=== PATIENT | male | born 1975 | race Caucasian/White ===

== ENCOUNTER 2024-06-18 08:59 | Outpatient (OUT) | payer OTHER, SELFPAY | END 2024-06-18 09:00 | disposition home or self-care (01) | LOC: PST 08:59 | PROVIDERS: Visit Provider Surgery | DX: Z01.818 Encounter for other preprocedural examination (principal); Z12.11 Encounter for screening for malignant neoplasm of colon ==

== ENCOUNTER 2024-06-23 07:41 | Day surgery (SDC) | payer OTHER, SELFPAY ==
--- OUTSIDE RECORDS SUMMARY | 2024-06-23 07:44 | XMS_ITS | CCD ---
Author Organization [facility] Care Team Providers Care Rock Worker Name Role Phone Kaden Duarte DO Primary Care Provider KADEN DUARTE Referring Unavailable FELICIA, KADEN Miller Primary Care Unavailable FELICIA, KADEN Miller Referring Unavailable FELICIA, KADEN Miller Primary Care Unavailable FELICIA, KADEN Miller Referring Unavailable FELICIA, KADEN Miller Primary Care Unavailable FELICIA, KADEN Miller Referring Unavailable FELICIA, KADEN Miller Primary Care Unavailable FELICIAKADEN Referring Unavailable FELICIA, KADEN Miller Primary Care Unavailable FELICIA, KADEN Miller Referring Unavailable FELICIA, KADEN Miller Primary Care Unavailable [facility] Unava ilable Kate ASCENCIO, Garrett Manning Attending Unavailable Tico Ferreira Attending Unavailable Felicia DO, [facility] Unava ilable Felicia DO, [facility] Primary Care Unava ilable Kate ASCENCIO, Garrett Manning Attending Unavailable Felicia DO, [facility] Primary Care Unava ilable Kate ASCENCIO, Garrett Manning Attending Unavailable Felicia DO, [facility] Primary Care Unava ilable Kate ASCENCIO, Garrett Manning Attending Unavailable Felicia DO, [facility] Primary Care Unava ilable Kate ASCENCIO, Garrett Manning Attending Unavailable Felicia DO, [facility] Primary Care Unava ilable Kate ASCENCIO, Garrett Manning Attending Unavailable Kate ASCENCIO, Garrett Manning Attending Unavailable Felicia , [facility] Primary Care Unava ilable Felicia DO, Kaden Miller Primary Care Provider Danielle Cardoza NP Unavailable DANIELLE CARDOZA Attending Unavailable DANIELLE CARDOZA Attending Unavailable DANIELLE CARDOZA Attending Unavailable CURTIS LI Attending Unavailable Medications Current Medications Medication Drug Class(es) Dates Sig (Normalized) Sig (Original) ALPRAZolam 1 mg oral tablet (3 sources) Benzodiazepine take 1 tablet by mouth three times daily ALPRAZolam (XANAX) 1 MG tablet Take 1 mg by mouth three times daily 0 Active 24 hr amphetamine aspartate 5 mg / amphetamine sulfate 5 mg / dextroamphetamine saccharate 5 mg / dextroamphetamine sulfate 5 mg extended release oral capsule (9 sources) Central Nervous System Stimulant Start: 03-03-2024 take 1 capsule by mouth in the morning, then take 1 capsule by mouth every twenty-four hours at bedtime amphetamine-dex troamphetamine XR (Adderall XR) 20 MG 24 hr capsule Take 20 mg by mouth in the morning and 20 mg before bedtime. 03/03/2024 Active aspirin 81 mg delayed release oral tablet (11 sources) Platelet Aggregation Inhibitor, Nonsteroidal Anti-inflammatory Drug aspirin 81 MG EC tablet 1 (one) time each day at the same time. Active baclofen 20 mg oral tablet (11 sources) gamma-Aminobutyric Acid-ergic Agonist Start: 04-17-2024 End: 04-17-2024 take 1 tablet by mouth in the morning baclofen (Lioresal) 20 MG tablet Indications: Myalgia Take 1 tablet (20 mg) by mouth in the morning and 1 tablet (20 mg) before bedtime. 180 tablet 1 04/17/2024 Active Start: 04-13-2024 End: 04-15-2024 Baclofen 15 MG tablet Indica tions: Myalgia Take 20 mg by mouth Daily as needed (pain) 30 tablet 04/13/2024 04/15/2024 Discontinued Start: 04-09-2024 End: 04-13-2024 take 1 tablet by mouth once daily as needed for muscle spasms baclofen 15 MG tablet Indications: Myalgia Take 15 mg by mouth Daily as needed for muscle spasms 30 tablet 04/09/2024 04/13/2024 Discontinued (Reorder) Start: 04-09-2024 End: 05-09-2024 take 1 tablet by mouth once daily as needed for muscle spasms baclofen 15 MG tablet Indications: Myalgia Take 15 mg by mouth Daily as needed for muscle spasms 30 tablet 04/09/2024 05/09/2024 Active bisacodyl 5 mg delayed release oral tablet (2 sources) Stimulant Laxative Start: 06-09-2024 End: 06-09-2024 take 1 tablet by mouth once bisacodyl (Dulcolax) 5 MG EC tablet Indications: Encounter for screening colonoscopy Take 1 tablet (5 mg) by mouth 1 time for 1 dose Do not crush, chew, or split. Take as detailed on clinic hand out for colonoscopy prep 4 tablet 06/09/2024 06/09/2024 Active 24 hr buPROPion hydrochloride 300 mg extended release oral tablet (14 sources) Aminoketone Start: 05-16-2022 take 1 tablet by mouth every twenty-four hours in the morning buPROPion XL (Wellbutrin XL) 300 MG 24 hr tablet Take 1 tablet by mouth in the morning. 05/16/2022 Active take 1 tablet by mouth twice tan ly buPROPion (WELLBUTRIN SR) 100 MG SR tablet Take 100 mg by mouth 2 times daily 0 Active busPIRone hydrochloride 5 mg oral tablet (4 sources) Start: 06-07-2022 End: 04-09-2024 busPIRone (Buspar) 5 MG tablet every 12 (twelve) hours. 06/07/2022 04/09/2024 Discontinued cloNIDine hydrochloride 0.1 mg oral tablet (4 sources) Central alpha-2 Adrenergic Agonist Start: 08-06-2023 End: 04-09-2024 take 1 tablet by mouth twice daily as needed cloNIDine (Catapres) 0.1 MG tablet Take 0.1 mg by mouth 2 (two) times a day as needed 08/06/2023 04/09/2024 Discontinued dapagliflozin 10 mg oral tablet (11 sources) Sodium-Glucose Cotransporter 2 Inhibitor Start: 12-30-2023 Farxiga 10 MG Indications: Type 2 diabetes mellitus with hyperglycemia, without long-term current use of insulin ([facility]) TAKE 1 TABLET DAILY 90 tablet 3 12/30/2023 Active doxycycline monohydrate 100 mg oral capsule (3 sources) Tetracycline-class Drug take 1 capsule by mouth twice daily doxycycline (MONODOX) 100 MG capsule Take 100 mg by mouth 2 times daily 0 Active guanFACINE 2 mg oral tablet (4 sources) Central alpha-2 Adrenergic Agonist Start: 07-12-2023 End: 11-07-2024 take 1 tablet by mouth at bedtime guanFACINE (Tenex) 2 MG tablet Take 2 mg by mouth at bedtime 07/12/2023 04/09/2024 Discontinued hydrOXYzine hydrochloride 50 mg oral tablet (4 sources) Antihistamine Start: 05-17-2023 End: 04-09-2024 take 1 tablet by mouth four times daily for anxiety hydrOXYzine HCl (Atarax) 50 MG tablet take 1 tablet by mouth four times a day if needed for anxiety 05/17/2023 04/09/2024 Discontinued lamoTRIgine 100 mg oral tablet (18 sources) Mood Stabilizer, Anti-epileptic Agent Start: 11-04-2023 take 1 tablet by mouth once daily lamoTRIgine (LaMICtal) 100 MG tablet Take 100 mg by mouth Daily 11/04/2023 Active Start: 11-04-2023 take 1 tablet by sami th once daily LaMICtal 25 MG tablet Take 25 mg by mouth Daily 11/04/2023 Active metFORMIN hydrochloride 1000 mg oral tablet (12 sources) Biguanide Start: 09-27-2023 End: 07-12-2024 take 1 tablet by mouth in the morning metFORMIN (Glucophage) 1000 MG tablet Indications: Type 2 diabetes mellitus with hyperglycemia, without long-term current use of insulin (CMS/HCC) Take 1 tablet (1,000 mg) by mouth in the morning and 1 tablet (1,000 mg) in the evening. Take with meals. 180 tablet 1 04/13/2024 07/12/2024 Active polyethylene glycol 3350 47164 mg powder for oral solution (2 sources) Osmotic Laxative Start: 06-09-2024 End: 06-09-2024 take 17 g by mouth once polyethylene glycol, PEG, 3350 (Glycolax) 17 GM/SCOOP powder Indications: Colonoscopy Take 238 g by mouth 1 (one) time for 1 dose Take as detailed from clinic hand out for colonoscopy prep 238 g 06/09/2024 06/09/2024 Active pravastatin sodium 40 mg oral tablet (16 sources) HMG-CoA Reductase Inhibitor Start: 09-27-2023 End: 06-04-2024 pravastatin (Pravachol) 40 MG tablet Indications: Mixed hyperlipidemia (CMS/HCC) TAKE 1 TABLET DAILY 90 tablet 06/04/2024 Active take 1 tablet by mouth once hector y pravastatin (PRAVACHOL) 40 MG tablet Take 40 mg by mouth daily 0 Active propranolol hydrochloride 10 mg oral tablet (9 sources) beta-Adrenergic Lacey Start: 02-01-2024 propranolol (Inderal) 10 MG tablet Daily as needed 02/01/2024 Active sildenafil 50 mg oral tablet (13 sources) Phosphodiesterase 5 Inhibitor Start: 04-09-2024 End: 05-09-2024 take 1 tablet by mouth once daily as needed sildenafil (Viagra) 50 MG tablet Indications: Vasculogenic erectile dysfunction, unspecified vasculogenic erectile dysfunction type Take 1 tablet (50 mg) by mouth Daily as needed for erectile dysfunction 30 tablet 04/09/2024 Active Start: 09-04-2023 End: 04-09-2024 take 1 tablet by mouth once daily as needed sildenafil (Viagra) 25 MG tablet Indications: Vasculogenic erectile dysfunction, unspecified vasculogenic erectile dysfunction type Take 1 tablet (25 mg) by mouth Daily as needed for erectile dysfunction 30 tablet 09/04/2023 04/09/2024 Discontinued (Reorder) Completed/Discontinued Medications Medication Drug Class(es) Dates Sig (Normalized) Sig (Original) omeprazole 20 mg delayed release oral capsule (10 sources) Proton Pump Inhibitor Start: 11-14-2023 End: 04-13-2024 take 1 capsule by mouth once daily omeprazole (PriLOSEC) [address] capsule Indications: Gastroesophageal reflux disease, unspecified whether esophagitis present Take 1 capsule (20 mg) by mouth Daily Do not crush or chew. 90 capsule 1 11/14/2023 04/13/2024 Discontinued take 1 capsule by mouth once tan ly omeprazole (PRILOSEC) 20 MG capsule Take 20 mg by mouth Daily 0 Active technetium sestamibi (CARDIOLITE) injection 30 millicurie (2 sources) Start: 01-26-2021 End: 01-26-2021 technetium sestamibi (CARDIOLITE) injection 30 millicurie Start: 01-25-2021 End: 01-25-2021 technetium sestamibi (CARDIO LITE) injection 30 millicurie Problems Active Problems Problem Classification Problem Date Documented Date Episodic/Chronic Anxiety disorders (13 sources) Generalized anxiety disorder; Translations: [Generalized anxiety disorder] Onset: 08-06-2022 08-12-2023 Chronic Diabetes mellitus with complications (20 sources) Hyperglycemia due to type 2 diabetes mellitus; Translations: [Type 2 diabetes mellitus with hyperglycemia] Onset: 08-06-2022 Resolved: 09-12-2023 12-06-2022 Chronic Disorders of lipid metabolism (13 sources) Mixed hyperlipidemia; Translations: [Mixed hyperlipidemia] Onset: 12-06-2022 03-04-2024 Chronic Diverticulosis and diverticulitis (11 sources) Diverticulosis of colon; Translations: [Diverticulosis of large intestine without perforation or abscess without bleeding] Onset: 12-06-2022 12-06-2022 Chronic Esophageal disorders (11 sources) Gastroesophageal reflux disease; Translations: [Gastro-esophageal reflux disease without esophagitis] Onset: 12-06-2022 12-06-2022 Chronic Essential hypertension (15 sources) Essential hypertension; Translations: [Essential (primary) hypertension] Onset: 12-06-2022 Chronic Hypertension with complications and secondary hypertension (13 sources) Cardiomegaly - hypertensive; Translations: [Hypertensive heart disease without heart failure] Onset: 12-06-2022 Chronic Nonspecific chest pain (2 sources) Chest pain; Translations: [Chest pain, unspecified] Episodic Other connective tissue disease (4 sources) Muscle pain; Translations: [Myalgia, unspecified site] 04-09-2024 Episodic Other male genital disorders (2 sources) Vasculopathic erectile dysfunction; Translations: [Male erectile dysfunction, unspecified] 04-09-2024 Chronic Other nervous system disorders (11 sources) Chronic pain; Translations: [Other chronic pain] Onset: 12-06-2022 12-06-2022 Chronic Other screening for suspected conditions (not mental disorders or infectious disease) (6 sources) Patient encounter status; Translations: [Encounter for screening for cardiovascular disorders] 04-09-2024 Episodic Other upper respiratory disease (11 sources) Allergic disposition; Translations: [Other allergic rhinitis] Onset: 12-06-2022 12-06-2022 Chronic Unclassified (2 sources) Patient encounter status 04-09-2024 Past or Other Problems Problem Classification Problem Date Documented Date Episodic/Chronic Abdominal pain (14 sources) Indigestion; Translations: [Epigastric pain] Onset: 04-06-2015 Resolved: 09-12-2023 04-06-2015 Episodic Mood disorders (11 sources) Mood disorders Onset: 08-12-2023 Resolved: 04-09-2024 08-12-2023 Nutritional deficiencies (11 sources) Vitamin D deficiency; Translations: [Vitamin D deficiency, unspecified] Onset: 12-06-2022 Resolved: 09-12-2023 09-12-2023 Chronic Osteoarthritis (11 sources) Osteoarthritis of joint of right shoulder region; Translations: [Primary osteoarthritis, right shoulder] Onset: 12-06-2022 Resolved: 09-12-2023 09-12-2023 Chronic Other and unspecified benign neoplasm (14 sources) History of polyp of colon; Translations: [Personal history of colonic polyps] Onset: 04-06-2015 04-06-2015 Episodic Other connective tissue disease (11 sources) Tear of right rotator cuff; Translations: [Unspecified rotator cuff tear or rupture of right shoulder, not specified as traumatic] Onset: 12-06-2022 Resolved: 09-12-2023 09-12-2023 Episodic Screening and history of mental health and substance abuse codes (11 sources) Ex-smoker; Translations: [Personal history of nicotine dependence] Onset: 12-06-2022 Resolved: 04-09-2024 09-12-2023 Episodic Results Test Name Value Interpretation Reference Range Facility [facility] Post Vasectomyon 04-23 PV Result Normal [facility] Comment on above: Result Comment: No s perm cells seen in un-concentrated specimen. White Bloods Cells present Bacteria present. Performed By: #### S EMPV #### [address] [address] CARDIAC STRESS TESTon 2020 CARDIAC STRESS TEST [address] [id number] CARDIAC STRESS TEST PATIENT NAME: JOLLY BUCKLEY : 1975 MED REC NO: [id number] ROOM: ACCOUNT NO: [id number] ADMIT DATE: 01/25/2021 PROVIDER: Rishabh Miller CARDIOVASCULAR DIAGNOSTIC DEPARTMENT DATE OF STUDY: 01/25/2021 ORDERING PROVIDER: Kaden Duarte DO PRIMARY CARE PROVIDER: Kaden Duarte DO INTERPRETING PHYSICIAN: Rishabh Miller MD EXERCISE MYOCARDIAL PERFUSION STRESS TEST REPORT Stress/Rest single-isotope SPECT imaging with exercise stress and gated SPECT imaging INDICATION: Assessment of recent chest pain and/or discomfort. CLINICAL HISTORY: The patient is a 45-year-old man with no known coronary artery disease. Previous cardiac history includes: None. Other previous history includes: Chest pain, fatigue, dyspnea, diabetes mellitus, indigestion, heartburn, hypertension, smoker. Symptoms just prior to testing included: None. Relevant medications: None. PROCEDURE: The patient performed treadmill exercise using a Erlin protocol, completing 10:04 minutes and completing an estimated workload of 11.80 metabolic equivalents (METS). The test was terminated due to fatigue and shortness of breath. The heart rate was 93 beats per minute at baseline and increased to 164 beats per minute at peak exercise, which was 94% of the maximum predicted heart rate. The rest blood pressure was 120/70 mmHg and increased to 186/60 mmHg, which is a normal response. During the procedure, the patient developed fatigue, shortness of breath and leg fatigue, but denied any chest discomfort. Myocardial perfusion imaging: Imaging was performed at rest 30-45 minutes following the injection of 30 mCi of sestamibi. At peak exercise, the patient was injected with 30 mCi of sestamibi and exercise was continued for 1 minute. Gating post-stress tomographic imaging was performed 30-45 minutes after stress. STRESS ECG RESULTS: The resting electrocardiogram demonstrated normal sinus rhythm without definitive ST-segment abnormalities suggestive of myocardial ischemia. At peak exercise and during recovery, the patient developed: No significant ST segment changes suggestive of myocardial ischemia with no premature atrial contractions (PACs) and no premature ventricular contractions (PVCs). NUCLEAR IMAGING RESULTS: The overall quality of the study is fair. No significant attenuation artifact was seen. There is no evidence of abnormal lung uptake. Additionally, the right ventricle appears normal. The left ventricular cavity is noted to be normal in size on the stress images. There is no evidence of transient ischemic dilatation (TID) of the left ventricle. Gated SPECT imaging reveals normal myocardial thickening and wall motion with a calculated left ventricular ejection fraction of 60%. The rest images demonstrate homogeneous tracer distribution throughout the myocardium. SPECT images demonstrate homogeneous tracer distribution throughout the myocardium. IMPRESSION: 1. Normal myocardial perfusion imaging without significant evidence of myocardial ischemia or infarction. 2. Global left ventricular systolic function was normal with an ejection fraction of 60%, without regional wall motion abnormalities. 3. No significant electrocardiographic evidence of myocardial ischemia during EKG monitoring without significant associated arrhythmias. The patient's Jorge Treadmill score is 10, which correlates with a low risk for significant coronary artery disease. Overall, these results are most consistent with a low risk scan. RISHABH MILLER CANDACE Doc#: Unknown CC: Kaden Duarte Normal [facility] ECHO Complete 2D W Doppler W ColorOrdered By: Kaden Duarte on 01-25-2021 [facility] Transthoracic Echocardiography Report (TTE) Patient Name ALEIDA Date of Study 01/25/2021 JOLLY Springer Date of 1975 Gender Male Age 45 year(s) Race Room Number Height: 67 inch, 170.18 cm Corporate ID [id number] Weight: 212 pounds, 96.2 kg # Patient Acct [id number] BSA: 2.07 m^2 BMI: 33.2 kg/m^2 # MR # [id number] Repair Tech Sherry Busby Interpreting Physician Flash Cruz Fellow Referring Nurse Practitioner Interpreting Referring Physician MIREYA ELLISON Fellow * Type of Study TTE procedure:2D Echocardiogram, M-Mode, Doppler, Color Doppler. Procedure Date Date: 01/25/2021 Start: 09:50 AM Study Location: [facility] Indications:Chest pain and Hypertension. History / Tech. Comments: Dx: chest pain, HTN, hypertensive cardiomegally Patient Status: Outpatient Height: 67 inches Weight: 212 pounds BSA: 2.07 m^2 BMI: 33.2 kg/m^2 CONCLUSIONS Summary Global left ventricular systolic function appears preserved with an estimated ejection fraction of 60%. Mildly increased left ventricular wall thickness with a normal left ventricular cavity size. No significant valvular disease was seen. Evidence of mild diastolic dysfunction is seen. No significant cardiac cause of chest pain was identified from this study. Signature - - - - FINDINGS Left Atrium Left atrium is normal in size. Left Ventricle Global left ventricular systolic function appears preserved with an estimated ejection fraction of 60%. Mildly increased left ventricular wall thickness with a normal left ventricular cavity size. Right Atrium Right atrium is normal in size. Right Ventricle Normal right ventricular size and function. Mitral Valve Normal mitral valve structure and function. Aortic Valve Normal aortic valve structure and function without stenosis or regurgitation. Tricuspid Valve Normal tricuspid valve structure and function. Pulmonic Valve The pulmonic valve is normal in structure. Pericardial Effusion No significant pericardial effusion is seen. Miscellaneous Evidence of mild diastolic dysfunction is seen. Normal aortic root dimension. M-mode / 2D Measurements & Calculations: LVIDd:4.47 cm(3.7 - 5.6 cm) Diastolic Volume:89.09 ml LVIDs:3.22 cm(2.2 - 4.0 cm) Systolic Volume:33.28 ml IVSd:1.16 cm(0.6 - 1.1 cm) Aortic Root:3.7 cm(2.0 - 3.7 cm) LVPWd:1.1 cm(0.6 - 1.1 cm) LA Dimension: 3.63 cm(1.9 - 4.0 cm) Fractional Shortenin.96 % LA volume/Index: 39 ml /19m^2 Calculated LVEF (%): 62.64 % AV Cusp Separation: 2.56 cm Mitral: Aortic Valve Area (P1/2-Time): 2.56 cm^2 Peak Velocity: 0.93 m/s Peak E-Wave: 0.49 m/s Mean Velocity: 0.70 m/s Peak A-Wave: 0.54 m/s Peak Gradient: 3.45 mmHg E/A Ratio: 0.9 Mean Gradient: 2.13 mmHg Peak Gradient: 0.96 mmHg Acceleration Time: 38.68 msec P1/2t: 85.99 msec AV VTI: 12.83 cm Diastology / Tissue Doppler Lateral Wall E' velocity:0.09 m/s Lateral Wall E/E':5.49 [employer] Phone: Marco, Mhpn Incoming C ardio Results From Cpacs/Ge - 01/25/2021 5:57 PM EDT [facility] Transthoracic Echocardiography Report (TTE) Patient Name ALEIDA Date of Study 01/25/2021 JOLLY Springer Date of 1975 Gender Male Age 45 year(s) Race Room Number Height: 67 inch, 170.18 cm Corporate ID [id number] Weight: 212 pounds, 96.2 kg # Patient Acct [id number] BSA: 2.07 m^2 BMI: 33.2 kg/m^2 # MR # [id number] Repair Tech Work,Sherry Interpreting Physician Flash Cruz Fellow Referring Nurse Practitioner Interpreting Referring Physician MIREYA ELLISON Fellow * Type of Study TTE procedure:2D Echocardiogram, M-Mode, Doppler, Color Doppler. Procedure Date Date: 01/25/2021 Start: 09:50 AM Study Location: [facility] Indications:Chest pain and Hypertension. History / Tech. Comments: Dx: chest pain, HTN, hypertensive cardiomegally Patient Status: Outpatient Height: 67 inches Weight: 212 pounds BSA: 2.07 m^2 BMI: 33.2 kg/m^2 CONCLUSIONS Summary Global left ventricular systolic function appears preserved with an estimated ejection fraction of 60%. Mildly increased left ventricular wall thickness with a normal left ventricular cavity size. No significant valvular disease was seen. Evidence of mild diastolic dysfunction is seen. No significant cardiac cause of chest pain was identified from this study. Signature - - - - FINDINGS Left Atrium Left atrium is normal in size. Left Ventricle Global left ventricular systolic function appears preserved with an estimated ejection fraction of 60%. Mildly increased left ventricular wall thickness with a normal left ventricular cavity size. Right Atrium Right atrium is normal in size. Right Ventricle Normal right ventricular size and function. Mitral Valve Normal mitral valve structure and function. Aortic Valve Normal aortic valve structure and function without stenosis or regurgitation. Tricuspid Valve Normal tricuspid valve structure and function. Pulmonic Valve The pulmonic valve is normal in structure. Pericardial Effusion No significant pericardial effusion is seen. Miscellaneous Evidence of mild diastolic dysfunction is seen. Normal aortic root dimension. M-mode / 2D Measurements & Calculations: LVIDd:4.47 cm(3.7 - 5.6 cm) Diastolic Volume:89.09 ml LVIDs:3.22 cm(2.2 - 4.0 cm) Systolic Volume:33.28 ml IVSd:1.16 cm(0.6 - 1.1 cm) Aortic Root:3.7 cm(2.0 - 3.7 cm) LVPWd:1.1 cm(0.6 - 1.1 cm) LA Dimension: 3.63 cm(1.9 - 4.0 cm) Fractional Shortenin.96 % LA volume/Index: 39 ml /19m^2 Calculated LVEF (%): 62.64 % AV Cusp Separation: 2.56 cm Mitral: Aortic Valve Area (P1/2-Time): 2.56 cm^2 Peak Velocity: 0.93 m/s Peak E-Wave: 0.49 m/s Mean Velocity: 0.70 m/s Peak A-Wave: 0.54 m/s Peak Gradient: 3.45 mmHg E/A Ratio: 0.9 Mean Gradient: 2.13 mmHg Peak Gradient: 0.96 mmHg Acceleration Time: 38.68 msec P1/2t: 85.99 msec AV VTI: 12.83 cm Diastology / Tissue Doppler Lateral Wall E' velocity:0.09 m/s Lateral Wall E/E':5.49 [employer] Phone: [employer] Phone: XR CHEST (2 VW)on 01-25-2021 XR CHEST (2 VW) EXAMINATION: TWO XRAY VIEWS OF THE CHEST 01/25/2021 11:27 am COMPARISON: None. HISTORY: ORDERING SYSTEM PROVIDED HISTORY: Chest pain, unspecified type FINDINGS: Considering mild hypoinflation, the heart is normal in size. No evidence of pneumothorax, pleural effusion, infiltrate, or abnormal lung mass. Osseous structures are grossly unremarkable in appearance. IMPRESSION: Unremarkable PA and lateral chest. No evidence of acute cardiopulmonary process. Interpreted by: Izzy Garduno MD Signed by: Izzy Garduno MD 01/25/[address] [facility] Vital Signs Date Time Vital Sign Value Performing Clinician Chandra rudd 04-09-2024 07:02-0500 Body height 170.2 cm Danielle Cardoza [employer]PERVIS[employer] Work Phone: [facility] 04-09-2024 07:02-0500 Body mass index (BMI) [Ratio] 31.32 kg/m2 Danielle Cardoza [employer] Work Phone: [facility] 04-09-2024 07:02-0500 Body weight 90.72 kg Danielle Cardoza [employer] Work Phone: [facility] 04-09-2024 07:02-0500 Diastolic blood pressure 94 mm[Hg] Danielle Cardoza [employer] Work Phone: [facility] 04-09-2024 07:02-0500 Heart rate 86 /min Danielle Cardoza [employer] Work Phone: [facility] 04-09-2024 07:02-0500 SaO2% (BldA) [Mass fraction] 97 % Danielle Cardoza [employer] Work Phone: [facility] 04-09-2024 07:02-0500 Systolic blood pressure 136 mm[Hg] Danielle Cardoza [employer] Work Phone: [facility] Encounters Encounter Date Encounter Type Care Provider Facility Start: 06-09-2024 End: 06-09-2024 ambulatory CURTIS LI Not Available Start: 06-09-2024 End: 06-09-2024 Patient encounter procedure Curtis Li DO Work Phone: [facility] Comment on above: Encounter for screen ing colonoscopy (Primary Dx) Start: 06-02-2024 End: 06-04-2024 Refill Danielle Cardoza [employer] Work Phone: [facility] Comment on above: Mixed hyperlipidemia (CMS/HCC) Start: 04-17-2024 End: 04-17-2024 Refill Aretha Saab [employer] Work Phone: [facility] Comment on above: Myalgia Start: 04-13-2024 End: 04-13-2024 Refill Danielle Cardoza [employer] Work Phone: [facility] Comment on above: Type 2 diabetes jennifer itus with hyperglycemia, without long-term current use of insulin ([facility]) Med Refill Start: 04-10-2024 End: 04-10-2024 Telephone encounter Danielle Cardoza [employer] Work Phone: [facility] Comment on above: Med Refill Start: 04-09-2024 End: 04-09-2024 Bamboo flowsheet Danielle Cardoza [employer] Work Phone: [facility] Start: 04-09-2024 End: 04-09-2024 Bamboo flowsheet Danielle Cardoza [employer] Work Phone: [facility] Start: 04-09-2024 End: 04-09-2024 ambulatory DANIELLE CARDOZA Not Available Start: 04-09-2024 End: 04-09-2024 Office outpatient visit 25 minutes Danielle Cardoza [employer] Work Phone: [facility] Comment on above: Myalgia (Primary Dx) ; Screening for cardiovascular condition; Vasculogenic erectile dysfunction, unspecified vasculogenic erectile dysfunction type; Colon cancer screening; Essential hypertension (CMS/HCC); PRIYA (generalized anxiety disorder) ([facility]) Start: 03-04-2024 End: 03-04-2024 Refill Danielle Cardoza [employer] Work Phone: [facility] Comment on above: Mixed hyperlipidemia ([facility]) Start: 09-26-2023 ambulatory Kaden Duarte DO Facility:[facility] Start: 08-23-2023 End: 08-23-2023 ambulatory DANIELLE CARDOZA Not Available Start: 08-12-2023 End: 08-12-2023 ambulatory DANIELLE CARDZOA Not Available Start: 08-06-2023 End: 08-07-2023 ambulatory Kaden Duarte DO Facility:[facility] Start: 06-25-2023 End: 06-26-2023 ambulatory Kaden Duarte DO Facility:[facility] Start: 05-17-2023 End: 05-18-2023 ambulatory Kaden Goran Duarte DO Facility:[facility] Start: 04-23-2023 End: 04-24-2023 ambulatory 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 Facility:[facility] Start: 01-07-2023 End: 01-08-2023 ambulatory Kaden Duarte DO Facility:[facility] Start: 12-06-2022 End: 12-07-2022 ambulatory Kaden Goranpeace Duarte DO Facility:[facility] Start: 11-01-2022 End: 11-02-2022 ambulatory Garrett Love MD Facility:[facility] Start: 01-26-2021 End: 01-27-2021 ambulatory [facility] Start: 01-26-2021 End: 01-26-2021 Subsequent hospital visit by physician [facility] Cardiology Stress Room [facility] Stress Lab Comment on above: Arrived Start: 01-25-2021 End: 01-28-2021 ambulatory [facility] Start: 01-25-2021 End: 01-28-2021 ambulatory [facility]ADEN [facility] Start: 01-25-2021 End: 01-25-2021 Subsequent hospital visit by physician [facility] Echo Room [facility] Echocardiography Comment on above: Essential hypertensi on; Chest pain, unspecified type; Hypertensive cardiomegaly Procedures Date Procedure Procedure Detail Performing Clinician Start: 01-25-2021 Echo tthrc r-t 2d w/wom-mode compl spec&colr d Kaden Angela Felicia DO Work Phone: Start: 09-17-2017 Colonoscopy Danielle garcia NP Work Phone: Plan of Treatment Date Care Activity Detail Author Start: 09-18-2027 Screening for malign ant neoplasm of colon [facility] Start: 12-24-2025 Glaucoma screening Diabetes: R etinopathy Screening [facility] Start: 08-11-2024 Urine screening for protein Diabetes: Urine Protein Screening [facility] Start: 06-10-2024 End: 06-10-2024 Patient encounter procedure 06/10/2024 8:00 AM EST Office Visit [facility] [address] [place] [address] Curtis Li, [address] [place] [id number] [facility] Start: 06-08-2024 End: 06-08-2024 Patient encounter procedure 06/08/2024 12:15 PM EST Office Visit [facility] [address] [place] [address] Guillermo Curtis, [address] [place] [id number] [facility] Start: 06-04-2024 Influenza vaccination Influenza Vacc ine (#1) [facility] Comment on above: Postponed from 02/01 (Patient Refused) Start: 02-02-2024 Influenza vaccination Influenza Vacc ine (#1) [facility] Start: 11-12-2023 Hemoglobin A1c measurement Diabetes: Hemoglobin A1C [facility] Start: 02-01-2021 Influenza vaccination Flu vaccine (# 1) [employer] Phone: Start: 01-26-2021 End: 01-26-2021 Patient encounter procedure 01/26/2021 Appointment Stress Lab [facility] Stress Lab Start: 2018 Screening for malign ant neoplasm of colon Colon cancer screen colonoscopy [facility] [employer] Phone: Start: 1992 DTaP/Tdap/Td vaccine (1 - Tdap) DTaP/Tdap/Td vaccine (1 - Tdap) [facility] [employer] Phone: Start: 1988 HIV screening HIV screen [facility] Work Phone: Start: 1983 Lipid panel Lipid screen [facility] Work Phone: Start: 1973 Hepatitis C screening Hepatitis C sc reedre [facility] [employer] Work Phone: Start: 1973 Screening for malign ant neoplasm of colon [facility] End: 01-25-2021 NM MYOCARDIAL SPECT REST EXERCISE OR RX NM MYOCARDIAL SPECT REST EXERCISE OR RX Imaging Routine Essential hypertension Chest pain, unspecified type Hypertensive cardiomegaly 1 Occurrences starting 01/25/2021 until 01/25/2021 [facility] [employer] Work Phone: Comment on above: 1 Occurrences starti ng 01/25/2021 until 01/25/2021 Immunizations Immunization Date Immunization Notes Care Provider Fa cility 10-04-2022 tetanus toxoid, redu horacio diphtheria toxoid, and acellular pertussis vaccine, adsorbed Danielle Cardoza [employer] Work Phone: [facility] 04-04-2021 influenza, injectabl e, quadrivalent, preservative free Danielle Cardoza [employer] Work Phone: [facility] 04-04-2021 influenza virus vacc ine, unspecified formulation Danielle Cardoza [employer] Work Phone: [facility] 04-11-2020 Seasonal, quadrivale nt, recombinant, injectable influenza vaccine, preservative free Danielle Cardoza [employer] Work Phone: [facility] 10-17-1999 tetanus and diphther ia toxoids, adsorbed, preservative free, for adult use (5 Lf of tetanus toxoid and 2 Lf of diphtheria toxoid) Danielle Cardoza [employer] Work Phone: [facility] Payers Date Payer Category Payer Private Health Insurance [id number] 2022 Private Health Insurance 2014 Private Health Insurance [id number] 1973 Unknown [id number] 2.16.8 [id number] 1973 Unknown [id number] 2.16.8 [id number] 1973 Unknown [id number] 2.16.8 [id number] 1973 Unknown [id number] 2.16.8 [id number] 1973 Unknown [id number] 2.16.8 [id number] 1973 Unknown [id number] 2.16.8 [id number] 1973 Unknown [id number] 2.16. [id number] 1973 Unknown [id number] 2.16. [id number] 1973 Unknown [id number] 2.16. [id number] 1973 Unknown [id number] 2.16. [id number] 1973 Unknown [id number] 2.16. [id number] 1973 Unknown [id number] 2.16. [id number] 1973 Unknown [id number] 2.16. [id number] 1973 Unknown [id number] 2.16. [id number] 1973 Unknown [id number] 2.16.84 [id number] 1973 Unknown [id number] 2.16.84 [id number] 1973 Unknown [id number] 2.16.84 [id number] 1973 Unknown [id number] 2.16.84 [id number] Social History Date Type Detail Facility Tobacco smoking stat us NHIS Unknown if ever smoked [employer] Phone: Start: 1975 Sex Assigned At Not on file [employer] Phone: Start: 08-12-2023 End: 04-09-2024 Tobacco smoking status NHIS Ex-smoker [facility] History of tobacco use Current smoker [facility] History of tobacco use Cigarette Smoker [facility] Start: 08-12-2023 End: 04-07-2024 Cigarettes smoked current (pack per day) - Reported 1 [facility] Start: 08-12-2023 End: 04-09-2024 Tobacco use and exposure Smokeless tobacco non-user [facility] Start: 09-12-2023 End: 04-09-2024 Alcoholic beverage intake Current drinker of alcohol (finding) [facility] Start: 12-05-2022 End: 04-07-2024 Humiliation, Afraid, Rape, and Kick questionnaire [HARK] [facility] Within the last year , have you been afraid of your partner or ex-partner? No [facility] Are you now , , , , never or living with a partner? [facility] How often to you hav e a drink containing alcohol? 2-3 time sa week [facility] How many standard dr inks containing alcohol do you have on a typical day? 1 or 2 [facility] How often do you hav e 6 or more drinks on 1 occasion? Less than monthly [facility] How hard is it for y ou to pay for the very basics like food, housing, medical care, and heating Not hard at all [facility] Do you feel stress - tense, restless, nervous, or anxious, or unable to sleep at night because your mind is troubled all the time - these days [OSQ] Very much [facility] (I/We) worried wheth er (my/our) food would run out before (I/we) got money to buy more. Never true [facility] Start: 12-05-2022 Alcohol Comment caffeine: yes, coffee/soda [facility] Start: 11-29-2022 Gender identity Identifies as male gender (finding) [facility] Start: 11-29-2022 Sexual orientation Heterosexual (finding) [facility] Do you feel stress - tense, restless, nervous, or anxious, or unable to sleep at night because your mind is troubled all the time - these days [OSQ] To some extent [facility] Clinical Notes 01-25-2021 to 06-09-2024 Curtis Li, - 06/09/2024 9:00 AM ESTTelephone Encounter - Aretha Tati Katiana, [employer] - 04/17/2024 12:14 PM ESTTelephone Encounter - Aretha Duffy Katiana, [employer] - 04/17/2024 12:14 PM EST Note Date & Type Note Facility 06-09-2024 History of Presen t illness Narrative General Surgery H&P Jolly Buckley 1975 Jolly Buckley is a 49 y.o. male presents for screening colonoscopy. He has a significant family Hx of colorectal cancer in his father and paternal grandfather and has c-scopes every 5 years. He has some issues with IBS and he said a possible diagnosis of ulcerative colitis but he hasn't ever been on medications for it. Denies abdominal pain. Denies melena or hematochezia. Denies changes in bowel habits. Denies changes in caliber of stools. Denies hx of unplanned weight loss. Denies fevers, chills, or sweats. Denies nausea or vomiting. Last colonoscopy was 2017. Takes 81mg ASA daily which he was told to hold 7 days before procedure. SUBJECTIVE: MEDICATIONS: ALLERGIES Current Outpatient Medications Medication Instructions amphetamine-dextroamphetamine XR (Adderall XR) 20 MG 24 hr capsule 20 mg, 2 times daily aspirin 81 MG EC tablet Every 24 hours baclofen (LIORESAL) 20 mg, Oral, 2 times daily buPROPion XL (Wellbutrin XL) 300 MG 24 hr tablet 1 tablet, Every morning Farxiga 10 mg, Oral, Daily LaMICtal 25 mg, Daily lamoTRIgine (LAMICTAL) 100 mg, Daily metFORMIN (GLUCOPHAGE) 1,000 mg, Oral, 2 times daily with meals pravastatin (PRAVACHOL) 40 mg, Oral, Daily propranolol (Inderal) 10 MG tablet Daily PRN sildenafil (VIAGRA) 50 mg, Oral, Daily PRN No Known Allergies PAST MEDICAL HISTORY: SOCIAL HISTORY SURGICAL HISTORY: Past Medical History: Diagnosis Date Acne ADHD (attention deficit hyperactivity disorder) ([facility]) 05/12/2023 Allergies Anxiety Depression ([facility]) Diabetes mellitus ([facility]) Dyspnea and respiratory abnormalities GERD (gastroesophageal reflux disease) Hx of colonic polyp IBS (irritable bowel syndrome) Obesity Ulcerative colitis ([facility]) Unspecified rotator cuff tear or rupture of right shoulder, not specified as traumatic 12/06/2022 Social History Tobacco Use Smoking status: Former Current packs/day: 1.00 Average packs/day: 1 pack/day for 5.0 years (5.0 ttl pk-yrs) Types: Cigarettes Smokeless tobacco: Never Vaping Use Vaping status: Every Day Substance Use Topics Alcohol use: Yes Alcohol/week: 10.0 standard drinks of alcohol Types: 10 Cans of beer per week Comment: caffeine: yes, coffee/soda Drug use: Not Currently Past Surgical History: Procedure Laterality Date COLONOSCOPY 2008 colitis- Dr. Bright COLONOSCOPY 09/2017 Dr. Duran COLONOSCOPY 2003 Dr. Butcher KNEE ARTHROPLASTY Right 05/2019 ROTATOR CUFF REPAIR Right 06/2022 Dr. Love VASECTOMY WISDOM TOOTH EXTRACTION Family History Problem Relation Name Age of Onset Colon cancer Father Socorro Buckley Cancer Father Socorro Buckley Lung cancer Maternal Grandfather Colon cancer Paternal Grandmother Colon cancer Paternal Grandfather No Known Allergies Past Surgical History: Procedure Laterality Date COLONOSCOPY 2008 colitis- Dr. Bright COLONOSCOPY 09/2017 Dr. Duran COLONOSCOPY 2004 Dr. Butcher KNEE ARTHROPLASTY Right 05/2019 ROTATOR CUFF REPAIR Right 06/2022 Dr. Love VASECTOMY WISDOM TOOTH EXTRACTION Tobacco Use: Medium Risk (04/09/2024) Patient History Smoking Tobacco Use: Former Smokeless Tobacco Use: Never Passive Exposure: Not on file Alcohol Use: Patient Declined (04/07/2024) AUDIT-C Frequency of Alcohol Consumption: Patient declined Average Number of Drinks: Patient declined Frequency of Binge Drinking: Patient declined Depression: Not at risk (04/09/2024) PHQ-2 PHQ-2 Score: 1 Physical Activity: Insufficiently Active (04/07/2024) Exercise Vital Sign Days of Exercise per Week: 1 day Minutes of Exercise per Session: 30 min REVIEW OF SYMPTOMS: Review of Systems All other systems reviewed and are negative. 10 systems were reviewed. Positives noted above. Remainder are negative per CMS guidelines. OBJECTIVE: Visit Vitals Smoking Status Former Phone visit ASSESSMENT AND PLAN: Assessment/Plan Diagnoses and all orders for this visit: Encounter for screening colonoscopy Plan: Patient is average risk for colon cancer. Colonoscopy can be scheduled electively. Patient informed of the risks of procedure which include but not limited to bleeding, perforation, and risks of anesthesia. Patient understood risks and signed informed consent for the procedure under monitored anesthesia care. Handout for bowel prep provided in clinic. Patient was informed of the need for a ride home from the hospital and the need for someone to be with them for the following 24 hrs post procedure. Thank you, Gian Li DO documented in this encounter [facility] 04-17-2024 Telephone encounter Note Resent at express rx request [facility] 04-17-2024 Miscellaneous Notes Resent at express rx request documented in this encounter [facility] 04-13-2024 Note Addended by: DANIELLE POLLARD on: 04/13/2024 02:41 PM Modules accepted: Orders [facility] 04-13-2024 Miscellaneous Notes Addended by: DANIELLE CARDOZA on: 04/13/2024 02:41 PM Modules accepted: Orders Baclofen 15mg is not covered by pts insurance. Express script called and states 20mg, 10mg, or 5mg are covered Can send new rx or call number below to phone it in Phone [phone] Ref [id number] documented in this encounter [facility] 04-13-2024 Telephone encounter Note Baclofen 15mg is not covered by pts insurance. Express script called and states 20mg, 10mg, or 5mg are covered Can send new rx or call number below to phone it in Phone [phone] Ref [id number] [facility] 04-10-2024 Telephone encounter Note Called express script- PA needed as med is not covered. PA completed per telephone. Informed in would take 24 hours for determination Update sent to pt via [employer] [facility] 04-10-2024 Miscellaneous Notes Called express script- PA needed as med is not covered. PA completed per telephone. Informed in would take 24 hours for determination Update sent to pt via [employer] Following message from pt Can you call express scripts and see what they need to get this sent? Thank you Danielle, I checked my express scripts for the baclofen script you sent in. It says Delayed, Information Needed. I am not sure if they will reach out to you but with my psychiatrist they don't. Just thought I would pass this along to keep things moving. Jolly Mitchell documented in this encounter [facility] 04-10-2024 Telephone encounter Note Following message from pt Can you call express scripts and see what they need to get this sent? Thank you Danielle I checked my express scripts for the baclofen script you sent in. It says Delayed, Information Needed. I am not sure if they will reach out to you but with my psychiatrist they don't. Just thought I would pass this along to keep things moving. Jolly Mitchell [facility] 04-09-2024 History of Presen t illness Narrative Jolly Buckley is a 49 y.o. male presents with chief complaint of No chief complaint on file. HPI: Has started new counselor and psychiatrist through [facility]-able to do virtual visits with one in person yearly Sees counselor every 2 weeks and psychiatrist every 3 months Many medication changes since last visit but feeling much improved, calmer, more focussed, less triggered Working on his alcohol dependence-feels his frequency is 50% decreased but is still working on quantity Does drink beer daily Continues massages-requesting muscle relaxer change since he is not seeing as much benefit with current tizanidine Labs due today but admits he has focussed on mental health since last OV that his weight and eating habits are not well managed DIABETES Farxiga 10mg every day, metformin 1000mg BID A1C- 08/12/2023- 6.2 MICROA- 08/12/2023 EYE EXAM- 12/20/2023 LABS- 08/2023 PSA- 08/12/2023- 0.72 HEP C SCREENING- 12/2022- NR COLON- 09/2017- tubular adenoma- repeat in 5 years; signed refusal 04/09/2024, but willing to complete in 2024 WELLNESS- 08/2023 VACCINES- tdap 10/2022 DENTIST- Ronit INTEGRITY ENGINEER- Dr Torres- aware to update yearly ORTHO- Dr Love/[facility] PSYCHIATRIST- Sheila Degroot/Jose SUBJECTIVE: MEDICATIONS: Current Outpatient Medications Medication Instructions amphetamine-dextroamphetamine XR (Adderall XR) 20 MG 24 hr capsule 20 mg, 2 times daily aspirin 81 MG EC tablet Every 24 hours Baclofen 15 mg, Oral, Daily PRN buPROPion XL (Wellbutrin XL) 300 MG 24 hr tablet 1 tablet, Every morning Farxiga 10 mg, Oral, Daily LaMICtal 25 mg, Daily lamoTRIgine (LAMICTAL) 100 mg, Daily metFORMIN (GLUCOPHAGE) 1,000 mg, Oral, 2 times daily with meals omeprazole (PRILOSEC) 20 mg, Oral, Daily, Do not crush or chew. pravastatin (PRAVACHOL) 40 mg, Oral, Daily propranolol (Inderal) 10 MG tablet Daily PRN sildenafil (VIAGRA) 50 mg, Oral, Daily PRN ALLERGIES: No Known Allergies SURGICAL HISTORY: Past Surgical History: Procedure Laterality Date COLONOSCOPY 2009 colitis- Dr. Bright COLONOSCOPY 09/2017 Dr. Duran COLONOSCOPY 2004 Dr. Butcher KNEE ARTHROPLASTY Right 05/2019 ROTATOR CUFF REPAIR Right 06/2022 Dr. Love VASECTOMY WISDOM TOOTH EXTRACTION FAMILY HISTORY: Family History Problem Relation Name Age of Onset Colon cancer Father Socorro Buckley Cancer Father Socorro Buckley Lung cancer Maternal Grandfather Colon cancer Paternal Grandmother Colon cancer Paternal Grandfather SOCIAL HISTORY: Social History Tobacco Use Smoking status: Former Current packs/day: 1.00 Average packs/day: 1 pack/day for 5.0 years (5.0 ttl pk-yrs) Types: Cigarettes Smokeless tobacco: Never Vaping Use Vaping status: Every Day Substance Use Topics Alcohol use: Yes Alcohol/week: 10.0 standard drinks of alcohol Types: 10 Cans of beer per week Comment: caffeine: yes, coffee/soda Drug use: Not Currently Depression: Not at risk (04/09/2024) PHQ-2 PHQ-2 Score: 1 REVIEW OF SYMPTOMS: Review of Systems Constitutional: Negative for fatigue and fever. HENT: Negative for congestion, dental problem, hearing loss, sore throat, tinnitus, trouble swallowing and voice change. Eyes: Negative for visual disturbance. Respiratory: Negative for cough, chest tightness, shortness of breath and wheezing. Cardiovascular: Negative for chest pain, palpitations and leg swelling. Gastrointestinal: Negative for abdominal distention, abdominal pain, blood in stool, constipation, diarrhea, nausea, rectal pain and vomiting. Genitourinary: Negative for difficulty urinating, dysuria, frequency, hematuria and urgency. Musculoskeletal: Positive for myalgias. Negative for arthralgias, gait problem and joint swelling. Skin: Negative for pallor, rash and wound. Neurological: Negative for dizziness, tremors, seizures, syncope, weakness, light-headedness, numbness and headaches. Psychiatric/Behavioral: Positive for agitation, decreased concentration and dysphoric mood. Negative for behavioral problems, confusion, hallucinations, self-injury, sleep disturbance and suicidal ideas. The patient is nervous/anxious and is hyperactive. Hematological: Does not bruise/bleed easily. Endocrine: Negative for cold intolerance, heat intolerance, polydipsia, polyphagia and polyuria. Allergic/Immunologic: Negative for environmental allergies. OBJECTIVE: Visit Vitals BP (!) 136/94 Pulse 86 Ht 5' 7 Wt 200 lb SpO2 97% BMI 31.32 kg/m Smoking Status Former BSA 2.07 m Physical Exam Vitals and nursing note reviewed. Constitutional: Appearance: Normal appearance. He is normal weight. HENT: Head: Normocephalic and atraumatic. Right Ear: Tympanic membrane, ear canal and external ear normal. Left Ear: Tympanic membrane, ear canal and external ear normal. Nose: Nose normal. Mouth/Throat: Mouth: Mucous membranes are moist. Pharynx: Oropharynx is clear. No oropharyngeal exudate or posterior oropharyngeal erythema. Eyes: Extraocular Movements: Extraocular movements intact. Conjunctiva/sclera: Conjunctivae normal. Pupils: Pupils are equal, round, and reactive to light. Cardiovascular: Rate and Rhythm: Normal rate and regular rhythm. Pulses: Normal pulses. Heart sounds: Normal heart sounds. No murmur heard. No friction rub. No gallop. Pulmonary: Effort: Pulmonary effort is normal. No respiratory distress. Breath sounds: Normal breath sounds. No wheezing. Chest: Chest wall: No tenderness. Abdominal: General: Abdomen is flat. Bowel sounds are normal. There is no distension. Palpations: Abdomen is soft. Tenderness: There is no abdominal tenderness. There is no guarding. Musculoskeletal: General: No swelling, tenderness, deformity or signs of injury. Normal range of motion. Cervical back: Normal range of motion and neck supple. Right lower leg: No edema. Left lower leg: No edema. Lymphadenopathy: Cervical: No cervical adenopathy. Skin: General: Skin is warm and dry. Capillary Refill: Capillary refill takes less than 2 seconds. Coloration: Skin is not jaundiced. Findings: No bruising, erythema or rash. Neurological: General: No focal deficit present. Mental Status: He is alert and oriented to person, place, and time. Mental status is at baseline. Cranial Nerves: No cranial nerve deficit. Sensory: No sensory deficit. Motor: No weakness. Coordination: Coordination normal. Gait: Gait normal. Psychiatric: Mood and Affect: Mood normal. Behavior: Behavior normal. Thought Content: Thought content normal. Judgment: Judgment normal. ASSESSMENT AND PLAN: Assessment/Plan Diagnoses and all orders for this visit: Myalgia - baclofen 15 MG tablet; Take 15 mg by mouth Daily as needed for muscle spasms Vasculogenic erectile dysfunction, unspecified vasculogenic erectile dysfunction type - sildenafil (Viagra) 50 MG tablet; Take 1 tablet (50 mg) by mouth Daily as needed for erectile dysfunction Dose increased this date Colon cancer screening - Ambulatory referral to General Surgery; Future Essential hypertension ([facility]) Monitor bp at home and bring log to appts Vaping cessation education Alcohol cessation education Stress management Clean eating reinforced PRIYA (generalized anxiety disorder) ([facility]) F/up counselor and psychiatrist Follow up in about 6 months (around 10/07/2024) for wellness. documented in this encounter [facility] 01-25-2021 History of Presen t illness Narrative Explained policies and procedures of an echocardiogram/doppler study. documented in this encounter [facility] Phone: 01-25-2021 History of Presen t illness Narrative Instructed patient on the benefit and protocol of a Cardiolite/Lexiscan stress test. 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 documented in this encounter [facility] Phone: evaluation note* Diagnosis Mixed hyperlipidemia ([facility]) Mixed hyperlipidemia documented in this encounter [facility]* Diagnosis Myalgia- Primary Unspecified myalgia and myositis Screening for cardiovascular condition Screening for other and unspecified cardiovascular conditions Vasculogenic erectile dysfunction, unspecified vasculogenic erectile dysfunction type Colon cancer screening Special screening for malignant neoplasms, colon Essential hypertension ([facility]) Unspecified essential hypertension PRIYA (generalized anxiety disorder) ([facility]) Generalized anxiety disorder documented in [facility] encounter [facility]* Diagnosis Type 2 diabetes mellitus with hyperglycemia, without long-term current use of insulin ([facility]) [facility]* Diagnosis Myalgia Unspecified myalgia and myositis documented in [facility] encounter [facility]* Diagnosis Myalgia Unspecified myalgia and myositis documented [facility]* Diagnosis Mixed hyperlipidemia ([facility]) Mixed hyperlipidemia documented [facility]* Diagnosis Encounter for screening colonoscopy- Primary documented in this encounter [facility] Reason for Referral Status Reason Specialty Diagnoses / Procedures Referre d By Contact Referred To Contact Closed Cardiology Diagnoses Essential hypertension Chest pain, unspecified type Hypertensive cardiomegaly Procedures ECHO Complete 2D W Doppler W Color Kaden Duarte, DO [address] [place] [address] Status Reason Specialty Diagnoses / Procedures Re ferred By Contact Referred To Contact Authorized Radiology Diagnoses Essential hypertension Chest pain, unspecified type Hypertensive cardiomegaly Procedures NM MYOCARDIAL SPECT REST EXERCISE OR RX Kaden Duarte, DO [address] [place] [address] Advance Directives No Advanced Directives Records FoundDocuments on File 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 ACP-Advance Directive ACP-Power of Distribution Associate Summary Purpose Family History No Family History Records FoundNo Family History Records FoundNo Family History Records Found Additional Source Comments Reason for Visit (unrecogniz ed section and content) Status Reason Specialty Diagnoses / Procedures Referre d By Contact Referred To Contact Closed Cardiology Diagnoses Essential hypertension Chest pain, unspecified type Hypertensive cardiomegaly Procedures ECHO Complete 2D W Doppler W Color Kaden Duarte, DO [address] [place] [address] Status Reason Specialty Diagnoses / Procedures Re ferred By Contact Referred To Contact Authorized Radiology Diagnoses Essential hypertension Chest pain, unspecified type Hypertensive cardiomegaly Procedures NM MYOCARDIAL SPECT REST EXERCISE OR RX Kaden Duarte, DO [address] [place] [address] Status Reason Specialty Diagnoses / Procedures Referre d By Contact Referred To Contact Closed Radiology Diagnoses Essential hypertension Chest pain, unspecified type Hypertensive cardiomegaly Procedures NM MYOCARDIAL SPECT REST EXERCISE OR RX Kaden Duarte DO [address] [place] [address] Reason Comments Med Refill Reason Onset Date Comments Med Refill 04/10/2024 Reason Onset Date Comments Med Refill 04/13/2024 (unrecognized sect ion and content) No Status Records FoundNo Status Records FoundNo Status Records Found INFORMATION SOURCE (unrecogn ized section and content) DATE CREATED AUTHOR 01/29/2021 Mary Beth Tucker [facility] DATE CREATED AUTHOR AUTHOR'S ORGANIZ ATION 09/26/2023 [facility] DATE CREATED AUTHOR AUTHOR'S ORGANIZ ATION 06/15/2024 [facility] Care Teams (unrecognized sec tion and content) Rock Worker Relationship Specialty Start Date End Date Kaden Duarte DO [address] [place] [id number] PCP - General Family Medicine 11/30/22 Danielle Cardoza, [employer] [address] [place] [address] Nurse Practitioner Family Medicine 11/30/22 Rock Worker Relationship Specialty Start Date End Date Kaden Duarte DO [address] [place] [address] PCP - General Family Medicine 11/30/22 Danielle Cardoza, [employer] [address] [place] [address] Nurse Practitioner Family Medicine 11/30/22 Rock Worker Relationship Specialty Start Date End Date Kaden Duarte DO [address] [place] [address] PCP - General Family Medicine 11/30/22 Danielle Cardoza, [employer] [address] [place] [address] Nurse Practitioner Family Medicine 11/30/22 Rock Worker Relationship Specialty Start Date End Date Kaden Duarte DO [address] [place] [address] PCP - General Family Medicine 11/30/22 Danielle Cardoza, [employer] [address] [place] [address] Nurse Practitioner Family Medicine 11/30/22 Rock Worker Relationship Specialty Start Date End Date Kaden Duarte DO [address] [place] [address] PCP - General Family Medicine 11/30/22 Danielle Cardoza, [employer] [address] [place] [address] Nurse Practitioner Family Medicine 11/30/22 Rock Worker Relationship Specialty Start Date End Date Kaden Duarte DO [address] [place] [address] PCP - General Family Medicine 11/30/22 Danielle Cardoza, [employer] [address] [place] [address] Nurse Practitioner Family Medicine 11/30/22 Rock Worker Relationship Specialty Start Date End Date Kaden Duarte DO [address] [place] [address] PCP - General Family Medicine 11/30/22 Danielle Cardoza, CRUZITO [address] [place] [address] Nurse Practitioner Family Medicine 11/30/22 Rock Worker Relationship Specialty Start Date End Date Kaden Duarte DO [address] [place] [address] PCP - General Family Medicine 11/30/22 Danielle Cardoza, CRUZITO [address] [place] [address] Nurse Practitioner Family Medicine 11/30/22 FOR RECORDS PERTAINING TO PATIENTS WHO ARE OR HAVE BEEN ENROLLED IN A CHEMICAL DEPENDENCY/SUBSTANCEABUSE PROGRAM, SOME INFORMATION MAY BE OMITTED. This clinical summary was aggregated from multiple sources. Caution should be exercised in using it in the provision of clinical care. This summary normalizes information from multiple sources, and as a consequence, information in this document may materially change the coding, format and clinical context of patient data. In addition, data may be omitted in some cases. CLINICAL DECISIONS SHOULD BE BASED ON THE PRIMARY CLINICAL RECORDS. [facility]. provides no warranty or guarantee of the accuracy or completeness of information in this document.
[2024-06-23 07:50] VITALS: BP 132/78; PULSE 101; TEMP 36.1; O2SAT 96; BMI 30.7
[2024-06-23 08:07] LABS: Glucometer 161 mg/dL (74-106)
[2024-06-23] MEDS: 0.9 % SODIUM CHLORIDE 500 ML 50 ML IV (08:12)
--- NOTE | 2024-06-23 08:19 | W.PM.PROCNOT ---
Date of procedure: 06/23/24 Pre-op diagnosis: screening colonoscopy Post-op diagnosis: other (colonoscopy with polypectomy x2, 4mm polyps at 17cm rectosigmoid and 8 cm rectal region completely removed via cold snare) Procedure: Previous colonoscopy: 2018 procedure: colonoscopy with polypectomy x2, 4mm polyps at 17cm rectosigmoid and 8 cm rectal region completely removed via cold snare The patient was given IV conscious sedation.? The patient's SPO2 remained above 90% throughout the procedure. The colonoscope was inserted per rectum and advanced under direct vision to the cecum without difficulty.? The prep was good.? Findings: Terminal ileum os: normal Cecum/Ascending colon: normal Transverse colon: normal Descending/Sigmoid colon: 4mm polyp at 17cm rectosigmoid completely removed via cold snare Rectum/Anus: examined in normal and retroflexed positions- 4mm polyp at 8 cm rectal region completely removed via cold snare Withdrawal Time was (minutes): 15 The colon was decompressed and the scope was removed.? The patient tolerated the procedure well. Recommendations/Plan: 1.? Lifestyle and dietary modifications as discussed 2.? F/U Biopsies 3.? F/U in 5 years due to personal/family history or sooner pending biopsy results 4.? Discussed with the family Anesthesia: MAC Surgeon: Mau Li Estimated blood loss (mL): 2 Pathology: other (4mm polyps at 17cm rectosigmoid and 8 cm rectal region respectively ) Condition: stable Disposition: PACU
[2024-06-23 09:31] VITALS: BP 106/62; PULSE 92; O2SAT 97
[2024-06-23 09:46] VITALS: BP 104/80; PULSE 77; O2SAT 97
== END 2024-06-23 10:02 | disposition home or self-care (01) ==
PROVIDERS: Visit Provider Surgery
PROC: (CPT 00812; principal; 2024-06-23 08:50)
DX: Z12.11 Encounter for screening for malignant neoplasm of colon (principal); D12.5 Benign neoplasm of sigmoid colon; D12.8 Benign neoplasm of rectum; Z80.0 Family history of malignant neoplasm of digestive organs; K58.9 Irritable bowel syndrome, unspecified; Z79.82 Long term (current) use of aspirin; Z98.52 Vasectomy status; E11.9 Type 2 diabetes mellitus without complications; Z79.84 Long term (current) use of oral hypoglycemic drugs; Z96.651 Presence of right artificial knee joint; F17.290 Nicotine dependence, other tobacco product, uncomplicated; K21.9 Gastro-esophageal reflux disease without esophagitis; Z86.0100 Personal history of colon polyps, unspecified
CPT/HCPCS: 00812; 45380; 45385; 36415; 82948; 88305; J2704